=== PATIENT | male | born 1975 | race Caucasian/White ===

== ENCOUNTER 2017-01-08 10:14 | Emergency (ER) | payer OTHER ==
[~2017-01-08] VITALS: Ht 193 cm; Wt 81.6 kg
--- NOTE | 2017-01-08 10:23 | NUR ---
DR PERSON AT THE BEDSIDE FOR EVAL AND EXAM.
[2017-01-08] MEDS ORDERED: LIDOCAINE HCL 2% 20 ML VIAL TP ONE (10:45)
[2017-01-08 10:48] VITALS: BP 122/70
--- NOTE | 2017-01-08 10:49 | NUR ---
Patient discharged to home in stable conditon. Written and verbal after care instructions given. Patient verbalizes understanding of instructions.
== END 2017-01-08 10:49 | disposition home or self-care (01) ==
LOC: ER 10:14
DX: S61.211A Laceration without foreign body of left index finger without damage to nail, initial encounter (principal); Z88.0 Allergy status to penicillin; X58.XXXA Exposure to other specified factors, initial encounter; Y93.89 Activity, other specified; Y92.89 Other specified places as the place of occurrence of the external cause; Y99.8 Other external cause status
CPT/HCPCS: 12001; 99283; A4663

== ENCOUNTER 2017-04-21 15:13 | Emergency (ER) | payer OTHER ==
--- NOTE | 2017-04-21 15:50 | NUR ---
CALLED FOR TRIAGE 15 MINS EARLIER, PT WAS NOT IN WAITING ROOM. PT STILL NOT IN WAITING ROOM.
== END 2017-04-21 15:53 | disposition left against medical advice (07) ==
LOC: ER 15:15
DX: Z53.21 Procedure and treatment not carried out due to patient leaving prior to being seen by health care provider (principal)

== ENCOUNTER 2018-04-29 20:54 | Emergency (ER) | payer OTHER ==
[~2018-04-29] VITALS: Ht 193 cm; Wt 83.9 kg
[2018-04-29] MEDS ORDERED: LET TOPICAL SOLUTION 8 ML UDC TP ONE (22:00)
[2018-04-29] MEDS ORDERED: LET TOPICAL SOLUTION 8 ML UDC ONE (22:00)
[2018-04-29] MEDS ORDERED: LIDOCAINE HCL 1% 20 ML VIAL IJ ONE (22:45)
[2018-04-29] MEDS ORDERED: NEOMY/BACITRA/POLYMYXIN B OINT UD PACKET TP ONE ×2 (23:08→23:15)
[2018-04-29] MEDS ORDERED: CEPHALEXIN MONOHYDRATE 500 MG CAPSULE PO ONE (23:15)
--- NOTE | 2018-04-29 23:20 | NUR ---
Patient discharged to home in stable conditon. Written and verbal after care instructions given. Patient verbalizes understanding of instructions. Patient able to ambulate unassisted with a steady gait. Patient left with all personal belongings.
[2018-04-29 23:26] VITALS: BP 138/84
== END 2018-04-29 23:20 | disposition home or self-care (01) ==
LOC: ER 20:56
DX: S61.217A Laceration without foreign body of left little finger without damage to nail, initial encounter (principal); Z88.0 Allergy status to penicillin; W26.0XXA Contact with knife, initial encounter; Y93.89 Activity, other specified; Y92.89 Other specified places as the place of occurrence of the external cause; Y99.8 Other external cause status
CPT/HCPCS: A4217; A4663; J3490

== ENCOUNTER 2020-02-25 22:14 | Emergency (ER) | payer BC, OTHER ==
[~2020-02-25] VITALS: Ht 193 cm; Wt 84.8 kg
--- NOTE | 2020-02-25 22:25 | NUR ---
Dr. Pierre at bedside for MSE.
[2020-02-25] MEDS ORDERED: FLUT16SP2 NS (22:27)
[2020-02-25] MEDS ORDERED: METH4TAB17 PO (22:27)
[2020-02-25 23:05] LABS: BASOPHILS % (AUTO) 0.4 % (0.0-2.0); EOSINOPHILS % (AUTO) 0.2 % (0.0-7.0); HEMATOCRIT 43.6 % (36.7-47.1); HEMOGLOBIN 14.5 g/dL (12.5-16.3); LYMPHOCYTES # (AUTO) 0.5 K/uL (20.0-40.0); LYMPHOCYTES % (AUTO) 7.7 % (20.5-51.5); MEAN CORPUSCULAR HGB CONC 33 g/dL (32.5-36.3); MEAN CORPUSCULAR VOLUME 90.1 fL (73.0-96.2); MONOCYTES % (AUTO) 0.4 % (0.0-11.0); NEUTROPHILS # (AUTO) 6.3 K/uL (1.8-8.9); NEUTROPHILS % (AUTO) 91.3 % (38.5-71.5); PLATELET COUNT (AUTO) 257 K/uL (152-348); RED BLOOD CELL COUNT(AUTO) 4.84 MIL/uL (4.06-5.63); WHITE BLOOD COUNT (AUTO) 6.9 K/uL (3.6-10.2)
[2020-02-25 23:09] LABS: CREATININE 1.1 mg/dL (0.6-1.3); POTASSIUM 3.9 mmol/L (3.5-5.1)
[2020-02-25 23:24] LABS: BILIRUBIN,DIRECT 0.2 mg/dL (0.0-0.2); BILIRUBIN,TOTAL 0.6 mg/dL (0.2-1.0); TOTAL PROTEIN, SERUM 8.2 g/dL (6.4-8.2)
--- NOTE | 2020-02-25 23:39 | NUR ---
Pt expressed feeling better. MD cleared patient for DC and explained course of events and discharge instructions. Reinforced teaching and prescription instruction, patient verbalized understanding. Stressed follow up with Cardiology or return to ER for worsening s/s. Ambulated out of ER in steady gait.
[2020-02-25 23:45] VITALS: BP 123/75
== END 2020-02-25 23:40 | disposition home or self-care (01) ==
LOC: ER 22:21
DX: R00.2 Palpitations (principal)
CPT/HCPCS: 36415; 70030-TC; 71045; 85025; 85730; 93005; A4663